=== PATIENT | female | born 1935 ===

== ENCOUNTER 2017-10-23 12:15 | Observation (INO) ==
[~2017-10-23 12:15] MED LIST: LIDOCAINE W/ SODIUM BICARB 0.5 ML SYR SUBD PRN; Nasal Sanitizer POPSWAB ampule 3 AMP (Nozin) PREOP DOSE ENOS SCH; ROCURONIUM 10 MG/1 ML - 5 ML VIAL IVP ONE
[2017-10-23] MEDS ORDERED: Lactated Ringers 1,000 ML PRIMARY IV ONE (12:19)
[2017-10-23] MEDS ORDERED: LIDOCAINE W/ SODIUM BICARB 0.5 ML SYR ONE (12:19)
[2017-10-23] MEDS: Lactated Ringers 1,000 ML PRIMARY IV SCH ×2 (12:39→18:23)
[2017-10-23] MEDS ORDERED: MIDAZOLAM 5 MG/1 ML ONE (14:18)
[2017-10-23] MEDS ORDERED: fentaNYL Inj 100 MCG/2 ML VIAL ONE (14:18)
[2017-10-23] MEDS ORDERED: PROPOFOL 10 MG/1 ML (200 MG/20 ML) VIAL IV ONE (14:20)
[2017-10-23] MEDS ORDERED: LIDOCAINE MPF 2% - 5 ML (20 MG/1 ML) ONE (14:21)
[2017-10-23] MEDS ORDERED: PHENYLEPHRINE 1% 30 ML NASAL DROPS ONE (15:13)
[2017-10-23] MEDS ORDERED: LIDOCAINE HCL 1%/EPI 1:100,000 - 20 ML VIAL ONE (15:40)
[2017-10-23] MEDS ORDERED: Clindamycin 900mg (Premix) 900 MG/50 ML BAG IV ONE (15:51)
[2017-10-23] MEDS ORDERED: Sodium Chloride 0.9% 500 ML ONE (16:02)
[2017-10-23] MEDS ORDERED: ePHEDrine Inj 50 MG/ML AMP ONE (16:36)
--- NOTE | 2017-10-23 17:37 | CRNA.PROGR ---
Post Anesthesia Phase II - Post Anesthesia Phase II Patient Stable and Discharged To: Med/Surg Care Assumed By Surgeon: Jasper Paniagua MD Temperature: 97.2 F Pulse Rate: 84 Respiratory Rate: 21 Blood Pressure: 105/67 Pulse Ox: 98 Total Antonio Score at Discharge: 9 Post Anesthesia Discharge Criteria Met: Yes
--- NOTE | 2017-10-23 17:37 | ENT.OPNOTE ---
Operative Note -: See Dictated Operative Report
--- NOTE | 2017-10-23 17:37 | CRNA.PROGR ---
Anesthesia Time - Procedure/Recovery Time Start Date: 10/23/17 End Date: 10/23/17 Anesthesia : Time In: 15:32 Anesthesia : Time Out: 17:17 Anesthesia : Total Time: 105 - Total Anesthesia Time Total Anesthesia Time (minutes): 105 - Other Weight: 64.864 kg Height: 4 ft 11 in Body Mass Index (BMI): 28.8 Anesthesia Type: General Anesthesia : ET
--- NOTE | 2017-10-23 17:38 | CRNA.PROGR ---
Anesthesia Recovery Phase I - Post Anesthesia Evaluation Patient's Condition on Arrival in Phase I: Stable Patient's Condition on Arrival in Phase II: Stable Pain Level: 2
[2017-10-23] MEDS ORDERED: ACETAMINOPHEN 325 MG TABLET PO PRN (17:53)
[2017-10-23] MEDS ORDERED: HYDROcodone-APAP 5 MG -325 MG TABLET PO PRN (17:53)
[2017-10-23] MEDS ORDERED: ONDANSETRON 4 MG/2 ML VIAL IVP PRN (17:53)
--- NOTE | 2017-10-23 17:59 | ENT.PROG ---
Objective : Data - Vital Signs Vital Signs and I&O: Vital Signs - Last Taken Temperature 97.2 F 10/23/17 17:37 Pulse Rate 84 10/23/17 17:37 Respiratory Rate 21 10/23/17 17:37 Blood Pressure 105/67 10/23/17 17:37 Pulse Ox 98 10/23/17 17:37
[2017-10-23] MEDS ORDERED: CLINDAMYCIN IV SCH (19:00)
[2017-10-23] MEDS ORDERED: SODIUM CHLORIDE 0.9% IV SCH (19:00)
--- NOTE | 2017-10-23 21:28 | PDOC ---
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 She presents today for surgery for a left lateral tongue squamous cell carcinoma. 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 Her history was somewhat difficult to understand as she has only have a tongue after surgery present, but as far as I can tell, she had radiation therapy for her tongue cancer in the past. Due to radiation therapy, precluded her from doing repeat radiation and left surgery is her only treatment modality for this cancer. After some discussion with Dr. Paniagua, the learning and development officer, the patient opted for having the left lateral tongue removed to try and treat this cancer as best as possible. PET scan has been done, but I do not know the results of that study. Postoperatively, we were asked to see the patient, and the patient denies any chest pain, shortness breath, nausea or vomiting postoperatively. She states that her tongue pain is actually fairly well-controlled when she is not talking, rates at 5/10, but when talking, rates it 10 out of 10. I asked the nurse to give her some morphine after our history and physical exam. She does detail history of hypothyroidism. She is on oxygen here, but I don't know if it's a chronic requirement or not. On review of her medical record, it appears that she has poor lung capacity. She stated to me that she also may have had some sort of stent placement procedure done in terms of her heart a year ago in [place]. We will try to get the records from their hospital. The plan, as I understand, is to keep the patient overnight at a minimum. The patient that I would try to do my best job for her and help her with medical issues during the hospital stay in the setting of her tongue surgery. Past Medical History Medical History: 1. Squamous cell carcinoma of the tongue, status post radiation therapy, status post surgical therapy today. 2. Hypothyroidism. 3. History of TIA. 4. Gouty arthropathy. 5. Dysphasia Surgical History: 1. Appendectomy. 2. Hysterectomy. 3. Left lateral tongue removal today. 4. Status post tonsillectomy. 5. Varicose vein stripping bilaterally. 6. knee replacement Pertinent Family History: She states that her dad at age 98 of "old age", mother of heart related problems and the patient stated that her mother smoked herself to Past Social History: for 62 years. Lives in [place], [place]. Has 2 children, one relatively healthy and one has some medical conditions. Does not smoke. Quit several years ago. Does not drink alcohol Tobacco Use: Former Smoker In the Past 12 Months, Have Used or Abuse Any of the Following Substance: None Alcohol Use: None Medication / Allergies Home Medications: Home Medications 3 Medication Instructions Recorded Confirmed Type albuterol sulfate HFA 90 1 puff INH Q4-6H PRN 07/25/17 10/23/17 History mcg/actuation aerosol inhaler ascorbic acid (vitamin C) 500 mg 500 mg PO QDAY 07/25/17 10/23/17 History tablet aspirin 81 mg tablet,delayed 81 mg PO QDAY 07/25/17 10/23/17 History release calcium citrate-vitamin D3 315 1 tab PO QDAY tab 07/25/17 10/23/17 History mg-200 unit tablet cholecalciferol (vitamin D3) 1,000 1,000 unit PO QDAY 07/25/17 10/23/17 History unit capsule docusate sodium 100 mg capsule 100 mg PO BID 07/25/17 10/23/17 History flaxseed oil 1,000 mg capsule 1,000 mg PO QDAY 07/25/17 10/23/17 History levothyroxine 100 mcg capsule 100 mcg PO QDAY 07/25/17 10/23/17 History mesalamine ER 0.375 gram 1.5 g PO QAM 07/25/17 10/23/17 History capsule,extended release 24 hr hycyjaneeond-bxvlkjtk-pnhekh tablet 1 tab PO QDAY 07/25/17 10/23/17 History omega-3s 360 sy-sfe-keo-fish oil 1 cap PO QDAY cap 07/25/17 10/23/17 History 1,200 mg-D3 1,000 unit capsule sour baltazar extract 1,000 mg 1,000 mg PO QDAY cap 07/25/17 10/23/17 History capsule vitamin B complex tablet 1 tab PO QDAY 18 10/23/17 History vitamin E (dl, acetate) 400 unit 400 unit PO QDAY 07/25/17 10/23/17 History capsule Calcium Carbonate [Tums] 1 tab PO DAILY PRN 10/23/17 10/23/17 History Allergies/Adverse Reactions: Allergies 3 Allergy/AdvReac Type Severity Reaction Status Date / Time allopurinol Allergy RASH Verified 10/05/17 13:08 ibandronate sodium Allergy SWELLING Verified 10/05/17 13:08 [From Boniva] Penicillins Allergy SWELLING Verified 10/23/17 12:54 raloxifene [From Evista] Allergy SWELLING Verified 10/05/17 13:08 sulfabenzamide Allergy DYSPHORIA Verified 10/23/17 12:54 camphor [From Flexall Plus] AdvReac HALLUCINATI Verified 10/23/17 12:54 ONS menthol [From Flexall Plus] AdvReac HALLUCINATI Verified 10/23/17 12:54 ONS methyl salicylate AdvReac HALLUCINATI Verified 10/23/17 12:54 [From Flexall Plus] ONS Review of Systems - Review of Systems All Systems: Reviewed & No Additional Complaints Except as Stated (I did a 12 point review of systems and other than that discussed in history present illness , the review systems is negative. Exceptions are noted below.) - Mouth/Throat Mouth/Throat Exam: REPORTS: Dysphagia (Has been issue because of tongue problems with squamous cell carcinoma of the tongue.), See HPI - Gastrointestinal Gastrointestinal / Abdominal: REPORTS: Other (Denies any heartburn symptoms) - Neurological Neurologic: REPORTS: Headache (Has a mild headache today.) Exam - Vitals Vital Signs: Vital Signs Temperature 97.8 F Temperature Source Temporal Artery Scan Pulse Rate [Pulse Oximeter] 76 Pulse Rate 84 Respiratory Rate 20 Blood Pressure [Right Calf] 185/67 Blood Pressure 105/67 Pulse Ox 97 Oxygen Flow Rate 3 Oxygen Delivery Method Nasal Cannula Height 4 ft 11 in Weight 143 lb - General General Appearance: No Acute Distress, Cooperative - Head Head Exam: Normal Inspection, Normocephalic, Atraumatic Additional Head Exam Details: I will note that there is a fairly large area along the temporal bone and posterior to the ear on the left side that has no hair growth from prior radiation therapy. - Eye Eye Exam: POSITIVE: No Scleral Icterus - ENT ENT Exam: POSITIVE: Mucous Membranes Dry - Neck Neck Exam: JVP is not Raised - Respiratory Respiratory Exam: POSITIVE: Clear to Auscultation - Bilaterally, Breathing Non Labored, Normal to Percussion and Palpation - Cardiovascular Cardiovascular Exam: POSITIVE: RRR, No Murmur, No Clicks, No Gallops, No Rubs, No JVD, +S2 - GI/Abdominal GI/Abdominal Exam: POSITIVE: Normal Bowel Sounds, Non Tender, Non Distended, Soft - Rectal Rectal Exam: POSITIVE: Deferred - External Exam: POSITIVE: Deferred Exam: POSITIVE: Deferred - Extremities Extremities Exam: POSITIVE: No Clubbing Present, No Edema Present, No Cyanosis Present - Back Back Exam: POSITIVE: No CVA Tenderness - Neurological Neurological Exam: POSITIVE: Alert, Oriented x 3, No Facial Droop, Moves All Extremities Equally Additional Neurological Exam Details: There is no facial droop. Speech can sometimes be difficult to understand, but some of that may have been related to dry mouth and I'm sure some swelling to the tongue post surgery. - Psychiatric Psychiatric Exam: POSITIVE: Normal Affect, Normal Mood Assessment and Plan - Patient Problems (1) Squamous cell carcinoma of lateral tongue Current Visit: Yes Status: Acute Code(s): C02.1 - Malignant neoplasm of border of tongue (2) Hypothyroidism Current Visit: Yes Status: Chronic Code(s): E03.9 - Hypothyroidism, unspecified Qualifiers: Hypothyroidism type: unspecified Qualified Code(s): E03.9 - Hypothyroidism , unspecified (3) TIA (transient ischemic attack) Current Visit: Yes Status: Chronic Code(s): G45.9 - Transient cerebral ischemic attack, unspecified Qualifiers: Transient cerebral ischemia type: unspecified Qualified Code(s): G45.9 - Transient cerebral ischemic attack, unspecified - Assessment / Plan Additional Assessment/Plan Details: I'll try to track down the records from [place], [place], to figure out what exactly the patient was trying to explain in terms of her medical history. She describes something that sounded like cardiac stents but I'm not sure. I will resume her home medications to the best of our ability, but hold off on herbal medications at this time. She can resume those as an outpatient. Pain control, and I have asked for a dose of morphine as patient had an exacerbation of her pain while talking to me and giving this history. The patient told me that she wants DO NOT RESUSCITATE as her CODE STATUS. We will get that reflected in the chart. She is on clear liquids currently, and tolerating ice water. Thank you for this consult. It will be the Hospitalist services pleasure to continue to address medical problems, continue Synthroid at home dose In terms of blood pressure, I will write for some when necessary medications. It may be that she is hypertensive and may need to start an antihypertensive regimen.
[2017-10-23] MEDS: SODIUM CHLORIDE 0.9% IV SCH (21:37)
[2017-10-23] MEDS: MORPHINE SULFATE 2 MG/1 ML IVP PRN ×2 (21:37→23:50)
[2017-10-23] MEDS: D5-1/2NS 1,000 ML PRIMARY IV SCH (21:37)
[2017-10-23] MEDS: CLINDAMYCIN IV SCH (21:37)
[2017-10-23] MEDS ORDERED: ALBUTEROL SULFATE 2.5 MG/3 ML NEB PRN (21:53)
[2017-10-23] MEDS: DOCUSATE 100 MG CAPSULE PO SCH (22:02)
[2017-10-24] MEDS: CLINDAMYCIN IV SCH ×4 (03:15→21:10)
[2017-10-24] MEDS: SODIUM CHLORIDE 0.9% IV SCH ×4 (03:15→21:10)
[2017-10-24] MEDS: MORPHINE SULFATE 2 MG/1 ML IVP PRN ×3 (03:16→14:32)
[2017-10-24] MEDS: LEVOTHYROXINE SODIUM 100 MCG PO SCH (05:51)
--- NOTE | 2017-10-24 09:25 | CRNA.PROGR ---
Anesthesia Note - Progress Notes Anesthesia Progress Note: Awake in bed. Unhappy. Marked swelling under jaw. Does not impinge on airway , but is very uncomfortable. Unable to enunciate clearly d/t swelling and discomfort. Has not had ice on affected area. Vital Signs - Last Taken Temperature 98.9 F 10/24/17 06:57 Pulse Rate 87 10/24/17 06:57 Respiratory Rate 17 10/24/17 07:00 Blood Pressure 141/64 10/24/17 06:57 Pulse Ox 94 10/24/17 06:58 No nausea. No emesis. No apparent anesthetic difficulties.
[2017-10-24] MEDS: DOCUSATE 100 MG CAPSULE PO SCH ×2 (09:55→21:10)
[2017-10-24] MEDS: ASCORBIC ACID Chewable 500 MG TABLET PO SCH (09:55)
[2017-10-24] MEDS: MESALAMINE 0.375 GM PO SCH (09:55)
[2017-10-24] MEDS ORDERED: HYDROcodone/APAP 7.5/325/15ml 15 ML CUP PO PRN ×2 (12:30→12:46)
--- NOTE | 2017-10-24 12:40 | PDOC(PROG) ---
Date of Service: 10/24/17 Time of Service: 12:32 Interval History: No chest pain, no shortness breath, no nausea or vomiting. Complains of increased pain on left side of neck and chin with increased swelling today. She 's having trouble swallowing pills, due to increased swelling and having pain when she eats. She does not feel like she is keeping up on her fluid intake. We are still waiting for records from [place]. Objective : Exam - General General Appearance: No Acute Distress, Cooperative Additional General Exam Details: Vital Signs - Last Taken Temperature 98.6 F 10/24/17 11:12 Pulse Rate 78 10/24/17 11:12 Respiratory Rate 17 10/24/17 11:12 Blood Pressure 167/63 10/24/17 11:12 Pulse Ox 96 10/24/17 11:12 - Eye Eye Exam: No Scleral Icterus - ENT ENT Exam: Mucous Membranes Dry Additonal ENT Exam Details: Increased swelling at the base of the jaw on the left side and into the neck. Very tender to palpation, no erythema to suggest infection. - Respiratory Respiratory Exam: Clear to Auscultation - Bilaterally, Breathing Non Labored - Cardiovascular Cardiovascular Exam: RRR, No Murmur, No Clicks, No Gallops, No Rubs, No JVD - GI/Abdominal GI/Abdominal Exam: Normal Bowel Sounds, Non Tender, Non Distended, Soft - Extremities Extremities Exam: No Clubbing Present, No Edema Present, No Cyanosis Present - Neurological Neurological Exam: Alert, Oriented x 3, No Facial Droop, Moves All Extremities Equally Additional Neurological Exam Details: Speech is intact to the ability of the patient to talk with less of a time, it is not garbled to suggest stroke by any means. Assessment and Plan - Patient Problems (1) Squamous cell carcinoma of lateral tongue Current Visit: Yes Status: Acute Code(s): C02.1 - Malignant neoplasm of border of tongue (2) Hypothyroidism Current Visit: Yes Status: Chronic Code(s): E03.9 - Hypothyroidism, unspecified Qualifiers: Hypothyroidism type: unspecified Qualified Code(s): E03.9 - Hypothyroidism , unspecified (3) History of TIA (transient ischemic attack) Current Visit: Yes Status: Acute Code(s): Z86.73 - Personal history of transient ischemic attack (TIA), and cerebral infarction without residual deficits - Assessment / Plan Additional Assessment/Plan Details: Check an electrolyte panel tomorrow given difficulty swallowing and trouble with fluids. We will start dexamethasone today. We'll try to discuss with Dr. Paniagua. Awaiting medical records from [place] to review. Change out hydrocodone pills for hydrocodone elixir. I think we can stop telemetry but continue continuous pulse oximetry with swelling around neck.
[2017-10-24] MEDS: D5-1/2NS 1,000 ML PRIMARY IV SCH (14:32)
[2017-10-24] MEDS ORDERED: CLINDAMYCIN IV SCH (21:00)
[2017-10-24] MEDS ORDERED: SODIUM CHLORIDE 0.9% IV SCH (21:00)
[2017-10-25] MEDS: SODIUM CHLORIDE 0.9% IV SCH ×2 (03:04→08:37)
[2017-10-25] MEDS: CLINDAMYCIN IV SCH ×2 (03:04→08:37)
[2017-10-25 04:44] LABS: BLOOD UREA NITROGEN 9 mg/dL (7-22)
[2017-10-25] MEDS: D5-1/2NS 1,000 ML PRIMARY IV SCH (05:27)
[2017-10-25] MEDS: LEVOTHYROXINE SODIUM 100 MCG PO SCH (06:15)
[2017-10-25] MEDS ORDERED: D5-1/2NS 1,000 ML PRIMARY IV SCH (08:02)
[2017-10-25] MEDS: DOCUSATE 100 MG CAPSULE PO SCH (08:37)
[2017-10-25] MEDS: MESALAMINE 0.375 GM PO SCH (08:37)
[2017-10-25] MEDS: ASCORBIC ACID Chewable 500 MG TABLET PO SCH (08:37)
[2017-10-25] MEDS ORDERED: PHENOL/SODIUM PHENOLATE 177 ML SPRAY PO PRN (11:05)
[2017-10-25] MEDS ORDERED: MAG/AL/SIM/DPM/LID Mouthwash 237 ML KIT PO PRN (11:09)
[2017-10-25 11:38] VITALS: O2SAT 95
[2017-10-25 13:20] VITALS: BP 140/61; RESP 20; TEMP 98.7
--- NOTE | 2017-10-25 14:37 | DCSUMMARY ---
Hospitalization Summary Admit Date: 10/23/2017 Discharge Date: 10/25/17 Primary Diagnosis:: squamous cell carcinoma of the tongue status post resect Hospital Course: Spent pleasant 81-year-old female with recurrence, so carcinoma the tongue with left lateral tongue resection performed by Dr. Paniagua. See his surgical dictation regarding the procedure. The patient was admitted for observation post surgery, and she had some increased swelling that required some dexamethasone to resolve. She also had some pain with swallowing that responded very well to Cepacol and to Magic mouthwash. Her pain decreased and she did not require any opiate medications nor did she want any. She had some problems coming off of opiates with withdrawal symptoms and thus they were severe for an arm issue in the past. During the hospital stay, her primary medical issues of peripheral arterial disease, carotid artery disease, and I believe COPD as she is on chronic oxygen therapy, all remained stable. Today, her throat pain has reduced, her swelling is reduced. She responded very well to Magic mouthwash and Cepacol throat spray. She stated to me that she was able to take in most of the pudding and potato soup and she was able to swallow with decreased pain with these medicines. She is "ready to go home". The patient and her plan to stay here overnight, and then they'll will return to [place] tomorrow.Assessment and Plan: 1. As per discharge assessments noted 2. Disposition: Patient is discharged home. 3. Condition on discharge, stable and improved. 4. Diet: Soft diet until cleared by Dr. Paniagua to resume regular diet. 5. Activities: resume normal activities 6. Follow-Up: 1. See Dr. Hernandez in the clinic on 10/27/2017 at 2 PM 2. 7. Medications at the Time of Discharge: Home Medications 3 Medication Instructions Recorded Confirmed Type albuterol sulfate HFA 90 1 puff INH Q4-6H PRN 07/25/17 10/23/17 History mcg/actuation aerosol inhaler ascorbic acid (vitamin C) 500 mg 500 mg PO QDAY 07/25/17 10/23/17 History tablet aspirin 81 mg tablet,delayed 81 mg PO QDAY 07/25/17 10/23/17 History release calcium citrate-vitamin D3 315 1 tab PO QDAY tab 07/25/17 10/23/17 History mg-200 unit tablet cholecalciferol (vitamin D3) 1,000 1,000 unit PO QDAY 07/25/17 10/23/17 History unit capsule docusate sodium 100 mg capsule 100 mg PO BID 07/25/17 10/23/17 History flaxseed oil 1,000 mg capsule 1,000 mg PO QDAY 07/25/17 10/23/17 History levothyroxine 100 mcg capsule 100 mcg PO QDAY 07/25/17 10/23/17 History mesalamine ER 0.375 gram 1.5 g PO QAM 07/25/17 10/23/17 History capsule,extended release 24 hr qbagsjpqgenc-ertupssb-rvkvhw tablet 1 tab PO QDAY 07/25/17 10/23/17 History omega-3s 360 wj-nzk-lzg-fish oil 1 cap PO QDAY cap 07/25/17 10/23/17 History 1,200 mg-D3 1,000 unit capsule sour baltazar extract 1,000 mg 1,000 mg PO QDAY cap 07/25/17 10/23/17 History capsule vitamin B complex tablet 1 tab PO QDAY 07/25/17 10/23/17 History vitamin E (dl, acetate) 400 unit 400 unit PO QDAY 07/25/17 10/23/17 History capsule Calcium Carbonate [Tums] 1 tab PO DAILY PRN 10/23/17 10/23/17 History MAG/AL/SIM/DPM/LID Mouthwash 15 ml PO Q2H PRN #1 kit 10/25/17 Rx [First-BLM Mouthwash] 8. Time, care, counseling and coordination of care for this discharge is greater than 30 minutes. Exam - Vitals Vital Signs: Vital Signs Vital Signs - Last Taken Temperature 98.7 F 10/25/17 13:00 Pulse Rate 90 10/25/17 13:00 Respiratory Rate 20 10/25/17 13:00 Blood Pressure 140/61 10/25/17 13:00 Pulse Ox 95 10/25/17 13:00 Height 4 ft 11 in Weight 143 lb - General General Appearance: No Acute Distress, Cooperative - Eye Eye Exam: POSITIVE: No Scleral Icterus - ENT ENT Exam: POSITIVE: Mucous Membranes Moist Additonal ENT Exam Details: Tongue swelling is significantly decreased. Improved movement. No swelling underneath the jaw, it has completely resolved. No erythema there. - Neck Neck Exam: No Tenderness, JVP is not Raised - Respiratory Respiratory Exam: POSITIVE: Clear to Auscultation - Bilaterally, Breathing Non Labored - Cardiovascular Cardiovascular Exam: POSITIVE: RRR, No Clicks, No Gallops, No Rubs, Systolic Murmur (Chronic murmur), No JVD - GI/Abdominal GI/Abdominal Exam: POSITIVE: Normal Bowel Sounds, Non Tender, Non Distended, Soft - Extremities Extremities Exam: POSITIVE: No Clubbing Present, No Edema Present, No Cyanosis Present - Neurological Neurological Exam: POSITIVE: Alert, Oriented x 3, No Facial Droop, Speech Intact / Clear (Speech pattern has actually improved as tongue swelling has decreased. Words are much more understandable today.), Moves All Extremities Equally Data Peritnent Studies: Laboratory Results 10/25/17 Range/Units 04:20 Sodium 136 (135-145) meq/L Potassium 3.7 L (3.8-5.2) meq/L Chloride 107 (98-112) meq/L Carbon Dioxide 26 (23-33) meq/L Anion Gap 3 L (5-20) BUN 9 (7-22) mg/dL Creatinine 0.6 (0.50-1.20) mg/dL BUN/Creatinine Ratio 15.00 (6-20) Glucose 111 H (78-110) mg/dL Calculated Osmolality 281.0 (267-292) mOsm/kg Calcium 8.7 (8.7-10.7) mg/dL Patient Problems - Patient Problem List (1) Status post partial glossectomy Current Visit: Yes Status: Acute Code(s): Z98.890 - Other specified postprocedural states Category: Surgical (2) Squamous cell carcinoma of lateral tongue Current Visit: Yes Status: Acute Code(s): C02.1 - Malignant neoplasm of border of tongue Category: Medical (3) Hypothyroidism Current Visit: Yes Status: Chronic Code(s): E03.9 - Hypothyroidism, unspecified Qualifiers: Hypothyroidism type: unspecified Qualified Code(s): E03.9 - Hypothyroidism , unspecified Category: Medical (4) History of TIA (transient ischemic attack) Current Visit: Yes Status: Acute Code(s): Z86.73 - Personal history of transient ischemic attack (TIA), and cerebral infarction without residual deficits Category: Medical (5) Carotid artery disease Current Visit: Yes Status: Acute Code(s): I77.9 - Disorder of arteries and arterioles, unspecified Qualifiers: Carotid artery disease type: unspecified Laterality: unspecified laterality Qualified Code(s): I77.9 - Disorder of arteries and arterioles, unspecified Category: Medical (6) Peripheral arterial disease Current Visit: Yes Status: Acute Code(s): I73.9 - Peripheral vascular disease, unspecified Category: Medical
== END 2017-10-25 15:02 | disposition home or self-care (01) ==
LOC: MED/SURG 12:15 → OR 12:15
PROVIDERS: ADMIT Otolaryngology; ATTEND Otolaryngology